=== PATIENT | male | born 1985 | race African-American/Black ===

== ENCOUNTER 2017-01-21 23:09 | Emergency (ER) | payer SELFPAY ==
[~2017-01-21] VITALS: Ht 160 cm; Wt 54.4 kg
[2017-01-21 23:15] VITALS: BP_SYST 112
--- NOTE | 2017-01-21 23:19 | NUR ---
Pt triaged and placed in waiting room. Vital signs are stable. Pt able to ambulate to waiting room with a steady gait.
--- NOTE | 2017-01-22 01:16 | NUR ---
Patient to ER bed 5 to gown for evaluation. Side rails up. Report given to CYNDEE LAMBERT.
--- NOTE | 2017-01-22 01:20 | NUR ---
Patient brought to ER by ambulance. Per EMT patient asked for ambulance from 11/20 complaining of abdominal pain. In ER patient C/O generalized abdominal pain 08/20 diffuse. Denies N/V/D/C. Patient states Hx of MR, slow to answer and poor historian. AAOx to person only, no signs of acute distress.
--- NOTE | 2017-01-22 01:29 | NUR ---
ER MD Phillips at bedside for evaluation
[2017-01-22] MEDS ORDERED: NACL 0.9% 1,000 ML IV ONE (01:34)
--- NOTE | 2017-01-22 01:50 | NUR ---
Header Up at bedside for blood draw. Patient identified x2
--- NOTE | 2017-01-22 02:01 | NUR ---
Patient refuses IV & fluids. aware.
[2017-01-22 02:22] LABS: BASOPHILS % (AUTO) 0.3 % (0.0-2.0); EOSINOPHILS # (AUTO) 0.2 K/uL (0.0-0.4); EOSINOPHILS % (AUTO) 2.5 % (0.0-4.0); HEMATOCRIT 30.8 % (36-54); HEMOGLOBIN 10.3 g/dL (14.0-18.0); LYMPHOCYTES # (AUTO) 2.8 K/uL (1.0-5.5); LYMPHOCYTES % (AUTO) 47.8 % (20.5-51.5); MEAN CORPUSCULAR HEMOGLOBIN 31 pg (27-31); MEAN CORPUSCULAR HGB CONC 34 % (32-36); MEAN CORPUSCULAR VOLUME 92 fL (79.0-98.0); MONOCYTES # (AUTO) 0.7 K/uL (0.0-1.0); MONOCYTES % (AUTO) 10.7 % (1.7-9.3); NEUTROPHILS # (AUTO) 2.4 K/uL (1.8-7.7); NEUTROPHILS % (AUTO) 38.7 % (40.0-70.0); PLATELET COUNT (AUTO) 136 K/uL (130-430); RED BLOOD CELL COUNT(AUTO) 3.34 MIL/uL (4.2-6.2); RED CELL DISTRIBUTION WIDTH 14.9 % (9.0-15.0); WHITE BLOOD COUNT (AUTO) 6.1 K/uL (4.8-10.8)
[2017-01-22 02:29] LABS: CALCIUM 9.8 mg/dL (8.4-11.0); CREATININE 0.88 mg/dL (0.55-1.30); POTASSIUM 4.1 mmol/L (3.5-5.1)
--- NOTE | 2017-01-22 02:32 | NUR ---
Patient refuses to provide urine. Patient states "let me sleep" MS aware
[2017-01-22 02:33] LABS: ALBUMIN 3.7 g/dL (3.4-4.8); TOTAL BILIRUBIN 0.2 mg/dL (0.0-1.0)
[2017-01-22 02:50] LABS: PROTHROMBIN TIME 10.7 SECS (9.5-12.5)
--- NOTE | 2017-01-22 03:18 | NUR ---
Patient asleep on gurney, no signs of acute distress.
--- NOTE | 2017-01-22 03:34 | NUR ---
Spoke with caregiver Afshin Jackson @ [phone]. Caregiver will come to hot die picker the patient.
[2017-01-22 04:07] VITALS: BP_SYST 118
--- NOTE | 2017-01-22 04:07 | NUR ---
Patient and caregiver given written and verbal discharge instructions and verbalizes understanding. ER MD Phillips discussed with patient the results and treatment provided. Patient in stable condition. ID arm band removed. Rx of colace given. Patient educated on pain management and to follow up with PMD. Pain Scale 0/10. Opportunity for questions provided and answered.
== END 2017-01-22 04:07 | disposition home or self-care (01) ==
LOC: SED 23:09
DX: K59.00 Constipation, unspecified (principal)
CPT/HCPCS: 36415; 71020-TC; 80053; 82150-TC; 83690-TC; 85025; 85610-TC; 85730-TC; 99285